=== PATIENT | female | born 1995 | race Caucasian/White ===

== ENCOUNTER 2019-03-12 13:30 | Emergency (ER) | payer SELFPAY ==
[2019-03-12] MEDS ORDERED: ONDANSETRON 4 MG TAB.RAPDIS PO ONE (15:13)
[2019-03-12] MEDS ORDERED: KETOROLAC TROMETHAMINE INJ/PF 30 MG/1 ML SDV IM ONE (15:13)
[2019-03-12 15:59] LABS: A TYPE INFLUENZA AG NEGATIVE (NEGATIVE); B INFLUENZA AG NEGATIVE (NEGATIVE)
[2019-03-12] MEDS ORDERED: ONDANSETRON ODT 4 MG TAB (6 TAB/ER DISP) PO PRN (16:13)
--- NOTE | 2019-03-12 16:14 | ER Document Report ---
HPI - HPI Time Seen by Provider: 03/12/19 15:06 Pain Level: 3 Context: Patient is a 23-year-old female who presents emergency department with a chief complaint of body aches. Patient reports she has had body aches for about 3 weeks. Patient reports since moving into a house with multiple friends is when her symptoms began. She is unsure if these friends are also sick. Patient reports sore throat. Patient reports a generalized headache. Patient denies fever or neck pain. Patient reports multiple episodes of vomiting over the past 24 hours with a decreased appetite. - CONSTITUTIONAL Constitutional: DENIES: Fever, Chills - NEURO Neurology: REPORTS: Headache - RESPIRATORY Respiratory: REPORTS: Coughing - REPRODUCTIVE Reproductive: DENIES: : Past Medical History - General Information source: Patient - Social History Smoking Status: Current Every Day Smoker Lives with: Friend Family History: None Patient has suicidal ideation: No Patient has homicidal ideation: No - Past Medical History Cardiac Medical History: Reports: None Pulmonary Medical History: Reports: Hx Asthma EENT Medical History: Reports: None Neurological Medical History: Reports: None Endocrine Medical History: Reports: None Renal/ Medical History: Reports: None Malignancy Medical History: Reports: None GI Medical History: Reports: None Musculoskeletal Medical History: Reports None Skin Medical History: Reports None Psychiatric Medical History: Reports: None Traumatic Medical History: Reports: None Infectious Medical History: Reports: None Surgical Hx: Negative Vertical Provider Document - CONSTITUTIONAL Agree With Documented VS: Yes Exam Limitations: No Limitations General Appearance: No Apparent Distress - INFECTION CONTROL TRAVEL OUTSIDE OF THE [place] IN LAST 30 DAYS: No - HEENT HEENT: Atraumatic, Normal ENT Exam, Normocephalic, PERRLA - NECK Neck: Normal Inspection - RESPIRATORY Respiratory: Breath Sounds Normal, No Respiratory Distress - CARDIOVASCULAR Cardiovascular: Regular Rate, Regular Rhythm - GI/ABDOMEN Gastrointestinal: Abdomen Soft, Abdomen Non-Tender, Normal Bowel Sounds - MUSCULOSKELETAL/EXTREMETIES Musculoskeletal/Extremeties: FROM, Non-Tender - NEURO Level of Consciousness: Awake, Alert, Appropriate - DERM Integumentary: Warm, Dry, No Rash Course - Re-evaluation Re-evalutation: 03/12/19 16:13 Patient was given a to go pack of antinausea medication as she reports having significant financial issues. 03/12/19 16:18 At time of discharge patient is tolerating liquids. Patient reports that since moving into the house with multiple friends is when she started to have the symptoms. She is concerned she may be exposed to something within the house. I did inform the patient if possible try to stay somewhere else or with another friend to see if this helps with her symptoms as she may be exposed to potential mold or other irritants that she is not used to. Patient verbalized understanding. Patient nontoxic-appearing. - Vital Signs Vital signs: Temp Pulse Resp BP Pulse Ox 98.8 F 90 16 129/63 H 99 03/12/19 13:38 03/12/19 13:38 03/12/19 13:38 03/12/19 13:38 03/12/19 13:38 Discharge - Discharge Clinical Impression: Myalgia, Generalized body aches, Sore throat (viral) Condition: Stable Disposition: HOME, SELF-CARE Additional Instructions: *Today was seen in the emergency department with generalized body aches and weakness. *Your strep test and influenza test were negative. Please continue to push fluids to stay hydrated. Take Tylenol and ibuprofen as needed for pain or fever. I will give you a prescription for antinausea medication to take only as needed. *Please return emergency department if you develop any new or worsening symptoms. Forms: Return to Work Referrals: [facility] [Provider Group] - Follow up as needed
[2019-03-12 16:28] VITALS: BP 96/68
== END 2019-03-12 16:30 | disposition home or self-care (01) ==
LOC: ER 13:30
DX: J02.9 Acute pharyngitis, unspecified (principal); M79.10 Myalgia, unspecified site; R51 Headache; R05 Cough; F17.200 Nicotine dependence, unspecified, uncomplicated
CPT/HCPCS: 99283; 96374; 87070; 87880; 87804; S0119; J1885

== ENCOUNTER 2019-03-28 12:36 | Emergency (ER) | payer SELFPAY ==
[2019-03-28] MEDS ORDERED: ONDANSETRON 4 MG TAB.RAPDIS PO ONE ×2 (13:52→16:55)
--- NOTE | 2019-03-28 13:53 | ER Document Report ---
ED Medical Screen (RME) - General Chief Complaint: Abdominal Pain Stated Complaint: VOMITING,ABDOMINAL PAIN Time Seen by Provider: 03/28/19 13:48 Mode of Arrival: Ambulatory Information source: Patient Notes: 23-year-old female presents emergency department with complaints of abdominal pain nausea vomiting since yesterday. Reports she had the same symptoms a couple weeks ago was evaluated in the emergency department and discharged. She reports she felt better. She works at the [employer] reports other people started coming in sick and now she has the symptoms all over again. Reports abdomen very tender to palpate. Did not receive flu vaccine has not been out of the country. I have greeted and performed a rapid initial assessment of this patient. A comprehensive ED assessment and evaluation of the patient, analysis of test results and completion of the medical decision making process will be conducted by additional ED providers. TRAVEL OUTSIDE OF THE [place] IN LAST 30 DAYS: No - Related Data Allergies/Adverse Reactions: No Known Allergies Allergy (Verified 03/28/19 13:48) Past Medical History - Social History Chew tobacco use (# tins/day): No Frequency of alcohol use: None Drug Abuse: None Pulmonary Medical History: Reports: Hx Asthma Physical Exam - Vital signs Vitals: Temp Pulse Resp BP Pulse Ox 98.7 F 72 18 116/58 L 99 03/28/19 13:16 03/28/19 13:16 03/28/19 13:16 03/28/19 13:16 03/28/19 13:16 Course - Vital Signs Vital signs: Temp Pulse Resp BP Pulse Ox 98.7 F 72 18 116/58 L 99 03/28/19 13:16 03/28/19 13:16 03/28/19 13:16 03/28/19 13:16 03/28/19 13:16
[2019-03-28 15:15] LABS: ABSOLUTE BASOPHILS # (AUTO) 0.1 10^3/uL (0.0-0.2); ABSOLUTE EOSINOPHILS # (AUTO) 0.1 10^3/uL (0.0-0.6); ABSOLUTE LYMPHOCYTES (AUTO) 2.6 10^3/uL (0.5-4.7); ABSOLUTE NEUT (AUTO) 9.3 10^3/uL (1.7-8.2); BASOPHILS % (AUTO) 0.7 % (0-2); EOSINOPHILS % (AUTO) 0.9 % (0-6); HEMATOCRIT 42.5 % (36.0-47.0); HEMOGLOBIN 14.8 g/dL (12.0-15.5); LYMPHOCYTES % (AUTO) 20.1 % (13-45); MEAN CORPUSCULAR HEMOGLOBIN 31.6 pg (27.0-33.4); MEAN CORPUSCULAR HGB CONC 34.7 g/dL (32.0-36.0); MEAN CORPUSCULAR VOLUME 91 fl (80-97); MONOCYTES % (AUTO) 7.6 % (3-13); PLATELET COUNT 253 10^3/uL (150-450); RED BLOOD COUNT 4.67 10^6/uL (3.72-5.28); RED CELL DISTRIBUTION WIDTH 12.4 % (11.5-14.0); SEGMENTED NEUTROPHILS % (AUTO) 70.7 % (42-78); TOTAL CELLS COUNTED % (AUTO) 100 %; WHITE BLOOD COUNT 13.2 10^3/uL (4.0-10.5)
[2019-03-28 15:23] LABS: APPEARANCE,URINE SLIGHTLY-CLOUDY; BILIRUBIN,URINE NEGATIVE (NEGATIVE); COLOR,URINE YELLOW; GLUCOSE, URINE NEGATIVE (NEGATIVE); KETONES,URINE NEGATIVE (NEGATIVE); LEUKOCYTE ESTERASE,URINE NEGATIVE (NEGATIVE); NITRITE,URINE NEGATIVE (NEGATIVE); PROTEIN,URINE NEGATIVE (NEGATIVE); URINE SPECIFIC GRAVITY 1.016; UROBILINOGEN,URINE NEGATIVE mg/dL (<2.0)
[2019-03-28 15:33] LABS: ALBUMIN 4.1 g/dL (3.5-5.0); ALKALINE PHOSPHATASE 82 U/L (38-126); ANION GAP 7 (5-19); ASPARTATE AMINO TRANSFERASE 21 U/L (14-36); BILIRUBIN,DIRECT 0.2 mg/dL (0.0-0.4); BILIRUBIN,TOTAL 0.3 mg/dL (0.2-1.3); BLOOD UREA NITROGEN 16 mg/dL (7-20); CALCIUM 9.1 mg/dL (8.4-10.2); CARBON DIOXIDE 28 mmol/L (22-30); CHLORIDE 104 mmol/L (98-107); GLUCOSE 76 mg/dL (75-110); POTASSIUM 4.4 mmol/L (3.6-5.0); TOTAL PROTEIN 6.8 g/dL (6.3-8.2)
[2019-03-28 15:37] LABS: A TYPE INFLUENZA AG NEGATIVE (NEGATIVE); B INFLUENZA AG NEGATIVE (NEGATIVE)
--- NOTE | 2019-03-28 17:00 | ER Document Report ---
ED General - General Chief Complaint: Abdominal Pain Stated Complaint: VOMITING,ABDOMINAL PAIN Time Seen by Provider: 03/28/19 13:48 Mode of Arrival: Ambulatory Notes: 23-year-old female presents emergency department complaining of nausea, vomiting, sore throat and myalgias for the past several days associated with di arrhea. Denies any fevers. States that she has had multiple sick contacts at work. States that she has been trying ibuprofen, Aleve, DayQuil and NyQuil without relief. Denies any blood in her stool or in her emesis. Denies any neck pain, denies any blurry vision. TRAVEL OUTSIDE OF THE [place] IN LAST 30 DAYS: No - Related Data Allergies/Adverse Reactions: No Known Allergies Allergy (Verified 03/28/19 13:48) Past Medical History - General Information source: Patient - Social History Smoking Status: Current Every Day Smoker Chew tobacco use (# tins/day): No Frequency of alcohol use: None Drug Abuse: None Family History: None Patient has suicidal ideation: No Patient has homicidal ideation: No Pulmonary Medical History: Reports: Hx Asthma Review of Systems - Review of Systems Constitutional: See HPI, Malaise, Weakness. denies: Fever EENT: See HPI, Throat pain. denies: Nose congestion, Nose discharge Cardiovascular: No symptoms reported Respiratory: No symptoms reported Gastrointestinal: See HPI Musculoskeletal: See HPI -: Yes All other systems reviewed and negative Physical Exam - Vital signs Vitals: Temp Pulse Resp BP Pulse Ox 98.7 F 72 18 116/58 L 99 03/28/19 13:16 03/28/19 13:16 03/28/19 13:16 03/28/19 13:16 03/28/19 13:16 Interpretation: Normal - Notes Notes: GENERAL: Alert, interacts well. No acute distress. HEAD: Normocephalic, atraumatic EYES: Pupils equal, round and reactive to light, extraocular movements intact. ENT: Oral mucosa moist, tongue midline. Some petechiae on the soft palate, no tonsillar exudate, no erythema to the uvula, no tonsillar or uvular enlargement. NECK: Full range of motion, supple, trachea midline. LUNGS: Clear to auscultation bilaterally, no wheezes, rales or rhonchi, no respiratory distress. HEART: Regular rate and rhythm, no murmurs, gallops, rubs. ABDOMEN: Soft, mild diffuse tenderness to palpation, nonfocal, nondistended, bowel sounds present in all 4 quadrants. EXTREMITIES: Moves all 4 extremities spontaneously, no edema, radial and dorsalis pedis pulses 2/4 bilaterally. No cyanosis. NEUROLOGICAL: Alert and oriented x3, normal speech, biceps and patellar DTRs 2+ bilaterally. PSYCH: Normal mood, normal affect. SKIN: Warm, Dry, normal turgor, no rashes or lesions noted. Course - Re-evaluation Re-evalutation: 03/28/19 16:58 CBC shows leukocytosis at 13.2, consistent with vomiting and diarrhea, nonspecific, CMP unremarkable, test is negative, urinalysis does not show any signs of infection or dehydration, flu a and B swabs are negative. Abdominal exam is very nonspecific. Suspect viral syndrome, discussed with patient that we will focus on controlling symptoms. Patient is agreeable to this plan. Treat with Zofran and Phenergan. Discharged home. 03/28/19 16:58 Suspect the sore throat is likely due to the persistent vomiting. No indication for antibiotics, no evidence of strep pharyngitis. - Vital Signs Vital signs: Temp Pulse Resp BP Pulse Ox 98.7 F 72 18 116/58 L 99 03/28/19 13:16 03/28/19 13:16 03/28/19 13:16 03/28/19 13:16 03/28/19 13:16 - Laboratory Result Diagrams: 03/28/19 14:48 03/28/19 14:48 Laboratory results interpreted by me: 03/28/19 14:48 WBC 13.2 H Absolute Neuts (auto) 9.3 H Discharge - Discharge Clinical Impression: Nausea vomiting and diarrhea, Sore throat Condition: Stable Disposition: HOME, SELF-CARE Additional Instructions: Viral Syndrome The physician has diagnosed a viral infection. Viruses not only cause "colds," but can cause many different symptoms including generalized aching, fever, headache, cough, diarrhea, nausea, vomiting, and fatigue. The treatment, for the most part, is simply relief of symptoms. This means that antibiotics are usually not given. Rest, fluids, pain medications and, occasionally, medication for the specific symptoms that are most bothersome will be prescribed. Use good handwashing to avoid passing the virus to others. Shared toys should be cleaned with disinfectant. Clean the toilets, sinks, and counter surfaces in bathrooms. Launder clothing in hot water. Contact the physician if you develop any new or unusual symptoms such as severe headache, stiff neck, high fever, chest pain, productive cough, or s hortness of breath. You should be rechecked if you don't see marked improvement within seven to 10 days. There is no evidence of bacterial infection in your sore throat. You may continue to use the sore throat sprays and cough drops to help decrease the pain in your throat. You may also gargle salt water. I have prescribed Zofran and Phenergan for your nausea and vomiting. The Zofran will dissolve under your tongue and stop the vomiting, you may use the Phenergan to decrease your nausea as well if the Zofran does not completely relieve your nausea. You may also use Imodium as directed [id number] to help with your diarrhea. Prescriptions: Promethazine HCl [Phenergan 25 mg Tablet] 1 - 2 tab PO Q6H PRN #15 tablet PRN Reason: Ondansetron [Zofran Odt 4 mg Tablet] 1 - 2 tab PO Q4H PRN #15 tab.rapdis PRN Reason: For Nausea/Vomiting Forms: Return to Work
[2019-03-28 17:21] VITALS: BP 133/66
== END 2019-03-28 17:15 | disposition home or self-care (01) ==
LOC: ER 12:36
DX: J02.9 Acute pharyngitis, unspecified (principal); R19.7 Diarrhea, unspecified; R11.2 Nausea with vomiting, unspecified; M79.10 Myalgia, unspecified site; R53.1 Weakness; F17.200 Nicotine dependence, unspecified, uncomplicated
CPT/HCPCS: 84703; 85025; 80053; 81001; 87804; S0119

== ENCOUNTER 2019-07-12 07:56 | Emergency (ER) | payer SELFPAY ==
--- NOTE | 2019-07-12 09:35 | ER Document Report ---
HPI - HPI Time Seen by Provider: 07/12/19 08:47 Pain Level: 5 Notes: 24-year-old female presents emergency room for complaints of right-sided ear pain and right-sided sore throat for the last week. Has not tried anything [id number], worse with time, nothing makes better. Patient states she does have a history of strep throat in the past and this does feel similar. Recently traveled from [place] in [place], only around her mother which she states she was not sick but has been grocery shopping. Denies fevers, chills, chest pain,palpitations, shortness of breath, dyspnea, nausea, vomiting, diarrhea, abdominal pain, hematuria,blurred vision, double vision, loss of vision, speech changes, LH, dizziness, syncope, headaches, wheezing, URI, neck pain, weakness, bowel or bladder dysfunction, saddle anesthesia, numbness or tingling in bilateral upper or lower extremities equally, muscle paralysis, weakness in bilateral upper or lower extremities equally or rash. LMP approximately 2 days ago MEDICATIONS: I agree with the patient medications as charted by the RN. ALLERGIES: I agree with the allergies as charted by the RN. PAST MEDICAL HISTORY/PAST SURGICAL HISTORY: Reviewed and agree as charted by RN. SOCIAL HISTORY: Reviewed and agree as charted by RN. FAMILY HISTORY: No significant familial comorbid conditions directly related to patient complaint EXAM: Reviewed vital signs as charted by RN. REVIEW OF SYSTEMS:reviewed vital signs by RN CONSTITUTIONAL : Denies fever, chills, or sweats. Denies recent illness. EENT: Reports R sore throat and R ear pain Denies eye, ear, or mouth pain or symptoms. Denies nasal or sinus congestion or discharge. Denies throat, tongue, or mouth swelling or difficulty swallowing. CARDIOVASCULAR: Denies chest pain. Denies palpitations or racing or irregular heart beat. Denies ankle edema. RESPIRATORY: Denies cough, cold, or chest congestion. Denies shortness of breath, difficulty breathing, or wheezing. GASTROINTESTINAL: Denies abdominal pain or distention. Denies nausea, vomi ting, or diarrhea. Denies blood in vomitus, stools, or per rectum. Denies black, tarry stools. Denies constipation. GENITOURINARY: Denies difficulty urinating, painful urination, burning, frequen cy, blood in urine, or discharge. FEMALE GENITOURINARY: Denies vaginal bleeding, heavy or abnormal periods, irregular periods. Denies vaginal discharge or odor. MUSCULOSKELETAL: Denies back or neck pain or stiffness. Denies joint pain or swelling. SKIN: Denies rash, lesions or sores. HEMATOLOGIC : Denies easy bruising or bleeding. LYMPHATIC: Denies swollen, enlarged glands. NEUROLOGICAL: Denies confusion or altered mental status. Denies passing out or loss of consciousness. Denies dizziness or lightheadedness. Denies headache. Denies weakness or paralysis or loss of use of either side. Denies problems with gait or speech. Denies sensory loss, numbness, or tingling. Denies seizures. PSYCHIATRIC: Denies anxiety or stress. Denies depression, suicidal ideation, or homicidal ideation. ALL OTHER SYSTEMS REVIEWED AND NEGATIVE. PHYSICAL EXAMINATION: GENERAL: Well-appearing, well-nourished and in no acute distress. HEAD: Atraumatic, normocephalic. EYES: Pupils equal round and reactive to light, extraocular movements intact, conjunctiva are normal. ENT: Right tympanic membrane with serous effusion, TM intact. Left TM normal appearing with pearly color, normal-appearing landmarks and normal light reflex. Hearing is grossly intact. Has normal facial sensation to light touch in 3 branches of the trigeminal nerve. Normal facial movement. No clicking or popping when jaw opens or closes. The nasal mucosa is moist. The septum is midline. There is no evidence of septal hematoma. The turbinates are without abnormality. No obvious abnormalities to the lips. The teeth are unremarkable No swelling no erythema no exudate no angioedema no drooling no trismus bilateral arches equal. Uvula midline. The salivary glands appear unremarkable. The tongue is midline. The posterior pharynx is with erythema or exudate on right. R tonsil is +2, Left tonsil is +1. are normal appearing. NECK: Normal range of motion, supple without lymphadenopathy LUNGS: Breath sounds clear to auscultation bilaterally and equal. No wheezes rales or rhonchi. HEART: Regular rate and rhythm without murmurs ABDOMEN: Soft, nontender, nondistended abdomen. No guarding, no rebound. No masses appreciated. Female : deferred Musculoskeletal: Normal range of motion, no pitting or edema. No cyanosis. NEUROLOGICAL: Cranial nerves grossly intact. Normal speech, normal gait. Kriss l sensory, motor exams PSYCH: Normal mood, normal affect. SKIN: Warm, Dry, normal turgor, no rashes or lesions noted. Dictation was performed using [employer] voice recognition software - EENT EENT: REPORTS: Sore Throat. DENIES: Ear Pain, Eye problems - NEURO Neurology: DENIES: Headache, Weakness, Vision blurred, Dizzinesss / Vertigo - CARDIOVASCULAR Cardiovascular: DENIES: Chest pain - RESPIRATORY Respiratory: DENIES: Trouble Breathing, Coughing - GASTROINTESTINAL Gastrointestinal: DENIES: Abdominal Pain, Black / Bloody Stools - URINARY Urinary: DENIES: Dysuria, Urgency, Frequency - REPRODUCTIVE Reproductive: DENIES: : - MUSCULOSKELETAL Musculoskeletal: DENIES: Extremity pain Past Medical History - General Information source: Patient - Social History Smoking Status: Current Every Day Smoker Drug Abuse: Marijuana Family History: None Patient has homicidal ideation: No Pulmonary Medical History: Reports: Hx Asthma Vertical Provider Document - CONSTITUTIONAL Agree With Documented VS: Yes Exam Limitations: No Limitations General Appearance: WD/WN - INFECTION CONTROL TRAVEL OUTSIDE OF THE [place] IN LAST 30 DAYS: No Course - Re-evaluation Re-evalutation: 07/12/19 09:50 Afebrile vital stable no distress. Nurses notes reviewed. Rapid strep is negative, throat culture pending. On clinical examination it does appear the patient does have erythema with exudate on right oral pharynx with tonsil enlarged. Vital signs are stable. Discussed with patient that it does appear that she has exudative pharyngitis, will treat her with an antibiotic for 10-day course, advised her to change toothbrush after 2 days and advised salt water gar gles. after performing a Medical Screening Examination, I estimate there is LOW risk for a DEEP SPACE INFECTION (e.g., HORACIO'S ANGINA OR RETROPHARYNGEAL ABSCESS), MENINGITIS, INTRACRANIAL HEMORRHAGE, or AIRWAY COMPROMISE, thus I consider the discharge disposition reasonable. Also, there is no evidence or peritonitis, sepsis, or toxicity. I have reevaluated this patient multiple times and no significant life threatening changes are noted. The patient and I have discussed the diagnosis and risks, and we agree with discharging home with close follow-up with the understanding that symptoms and presentations can change. We also discussed returning to the Emergency Department immediately if new or worsening symptoms occur. We have discussed the symptoms which are most concerning (e.g., changing or worsening pain, trouble swallowing or breathing, neck stiffness drooling, worsening symptoms, or fever) that necessitate immediate return. 07/12/19 09:51 - Vital Signs Vital signs: Temp Pulse Resp BP Pulse Ox 98.7 F 78 16 128/73 H 98 07/12/19 08:11 07/12/19 08:10 07/12/19 08:10 07/12/19 08:10 07/12/19 08:10 Discharge - Discharge Clinical Impression: Exudative pharyngitis Condition: Stable Disposition: HOME, SELF-CARE Instructions: Penicillin V K ([facility]), Sore Throat ([facility]), Strep Throat ([facility]) Additional Instructions: *You have been evaluated for a sore throat, pharyngitis *Take medication as prescribed *Warm salt water gargles and throat lozenges for comfort *Change toothbrush after two days of antibiotics *Do not let anyone drink/eat after you *Good hand washing *Follow-up with a primary care provider *Return to ED for worsening condition change, needs Return immediately for any new or worsening symptoms. Follow up with primary care provider, call tomorrow to make followup appointment. Prescriptions: Penicillin V Potassium [Penicillin Vk 500 mg Tablet] 500 mg PO BID #20 tablet Forms: Return to Work Referrals: LESLIE WAGNER MD [COMMUNITY BASED STAFF] - Follow up as needed
[2019-07-12 09:44] VITALS: BP 115/66
== END 2019-07-12 09:43 | disposition home or self-care (01) ==
LOC: ER 07:56
DX: J02.9 Acute pharyngitis, unspecified (principal); H92.01 Otalgia, right ear; F17.200 Nicotine dependence, unspecified, uncomplicated; F12.10 Cannabis abuse, uncomplicated; J45.909 Unspecified asthma, uncomplicated
CPT/HCPCS: 87070; 87077; 87880; 99283